=== PATIENT | female | born 1980 | race African-American/Black ===

== ENCOUNTER 2022-08-12 09:09 | Emergency (ER) | payer OTHER ==
[~2022-08-12] VITALS: Ht 160 cm; Wt 79.1 kg
[2022-08-12 09:10] VITALS: BP 128/73
[2022-08-12] MEDS ORDERED: IBUP-1022 (09:23)
[2022-08-12] MEDS ORDERED: PERCOCET 5MG/325MG TAB PO ONE (11:15)
[2022-08-12] MEDS ORDERED: PERC5TAB12 PO (11:16)
== END 2022-08-12 11:31 | disposition home or self-care (01) ==
LOC: M ED 09:09
DX: T88.9XXA Complication of surgical and medical care, unspecified, initial encounter (principal); G89.18 Other acute postprocedural pain; M25.511 Pain in right shoulder; Z79.891 Long term (current) use of opiate analgesic

== ENCOUNTER 2022-11-10 20:08 | Emergency (ER) | payer OTHER ==
[~2022-11-10] VITALS: Ht 162.6 cm; Wt 82.4 kg
[~2022-11-10 20:08] MED LIST: IBUP-1022; PERC5TAB12 PO
[2022-11-10] MEDS ORDERED: ACETAMINOPHEN TAB 650MG DOSE (2X325MG) PO ONE (23:15)
[2022-11-10] MEDS ORDERED: IBUPROFEN 600MG TAB PO ONE (23:15)
[2022-11-10] MEDS ORDERED: IBUP-1022 PO (23:16)
[2022-11-11 00:05] VITALS: BP 130/83
== END 2022-11-11 00:11 | disposition home or self-care (01) ==
LOC: M ED 20:08
DX: J02.9 Acute pharyngitis, unspecified (principal); J06.9 Acute upper respiratory infection, unspecified; Z79.1 Long term (current) use of non-steroidal anti-inflammatories (NSAID); Z79.891 Long term (current) use of opiate analgesic

== ENCOUNTER → 2024-01-27 | Outpatient (REF) ==
[~2024-01-27] MED LIST changes: +IBUP-1022 PO
[2024-01-27 15:56] LABS: APPEARANCE, URINE CLEAR (CLEAR); BACTERIA, URINE AUTO NEGATIVE (NEGATIVE); BILIRUBIN, URINE AUTO NEGATIVE (NEGATIVE); BLOOD, URINE BLOOD NEGATIVE (NEGATIVE); COLOR, URINE YELLOW (YELLOW); GLUCOSE, URINE (UA) AUTO NEGATIVE (NEGATIVE); KETONE, URINE AUTO NEGATIVE (NEGATIVE); LEUKOCYTE ESTERASE, URINE AUTO NEGATIVE (NEGATIVE); MUCUS, URINE SMALL (NEGATIVE); NITRITE, URINE AUTO NEGATIVE (NEGATIVE); PROTEIN, URINE AUTO NEGATIVE (NEGATIVE); RBC, URINE AUTO 3 /HPF (0-3); SPECIFIC GRAVITY URINE AUTO 1.019 (1.002-1.035); SQUAMOUS EPITHELIAL CELL UR AU 0 /HPF (0-6); UROBILINOGEN, URINE AUTO 0.2 mg/dL (0.0-2.0); WBC, URINE AUTO 1 /HPF (0-3)
== END ==
LOC: M PLAIMG 13:19
PROVIDERS: ATTEND Nurse Practitioner Family
DX: R00.2 Palpitations (principal); M77.32 Calcaneal spur, left foot; M25.539 Pain in unspecified wrist; M17.0 Bilateral primary osteoarthritis of knee; M25.571 Pain in right ankle and joints of right foot; M25.572 Pain in left ankle and joints of left foot; P00-P96 Certain conditions originating in the perinatal period; R35.0 Frequency of micturition